=== PATIENT | male | born 1995 | race Caucasian/White ===

== ENCOUNTER 2023-11-06 14:28 | Emergency (ER) | payer BC, SELFPAY ==
[2023-11-06 14:31] VITALS: BP 130/80; PULSE 66; RESP 18; TEMP 36.2; O2SAT 97; BMI 31.0
--- NOTE | 2023-11-06 15:07 | ED_ITS ---
HPI - Wound/Laceration General Chief Complaint: Laceration/Wound Stated Complaint: laceration- L index finger Time Seen by Provider: 11/06/23 14:34 History of Present Illness HPI narrative: This 28-year-old male comes in with a laceration to the distal portion of the pad of his left index finger. He was using a kitchen knife and accidentally cut into his finger. This happened a couple hours prior to arrival. He has a 1.5 cm linear laceration on the pad of his left index finger that does continue to bleed. His tetanus status is up-to-date. Related Data Home Medications ?Medication ?Instructions ?Recorded ?Confirmed No Known Home Medications 11/06/23 11/06/23 Allergies Allergy/AdvReac Type Severity Reaction Status Date / Time No Known Drug Allergies Allergy Verified 11/06/23 14:31 Review of Systems Status of ROS: Reports: 10 or more systems reviewed and unremarkable except as noted in History and below Narrative: Constitutional: No fevers, no weight gain or loss. Eyes: No discharge. No vision changes. HENT: No congestion, no sore throat, no ear pain. Cardiovascular: No chest pain, no palpitations. Respiratory: No shortness of breath, no wheezes, no cough. Gastrointestinal: No abdominal pain, no vomiting, no diarrhea. Genitourinary: No dysuria, no hematuria. Musculoskeletal: Normal range of motion. Skin: No rashes, no pruritis. Neurological: No dizziness, weakness, sensory change, speech change. Endo/Heme/Allergies: No bruising or bleeding. No polydipsia. Pysch: no suicidality, no anxiety, no insomnia. All other systems reviewed and are negative. Exam Narrative: Exam Narrative: Constitutional: Well-developed, well-nourished, no acute distress. HEENT: Normocephalic, atraumatic. Neck: Normal range of motion. Nontender. Supple. Heart: Intact distal pulses. Lungs: No chest discomfort. No wheezes, rhonchi, or rales. Abdomen: Nontender. Back: Normal range of motion. Extremities: Normal range of motion. 1.5 cm linear laceration on the pad of the distal portion of the left index finger. Skin: Intact. No rash. Warm. No erythema or pallor. Neurologic: No altered sensation. No weakness. Alert and oriented. Psychiatric: No suicidality. No anxiety or depression. No insomnia. Nursing notes and vitals signs are reviewed. Const: Vital Signs, click to edit/add: Vital Signs - 24 hr 11/06/23 14:31 Temperature 97.2 F L Pulse Rate [Pulse Oximeter] 66 Respiratory Rate 18 Blood Pressure [Ri ght Upper Arm] 130/80 Pulse Oximetry 97 Oxygen Delivery Me thod Room Air Course Vital Signs Vital signs: Initial Vital Signs Temperature 97.2 F L 11/06/23 14:31 Temperature Source Temporal Artery Scan 11/06/23 14:31 Pulse Rate 66 11/06/23 14:31 Respiratory Rate 18 11/06/23 14:31 Blood Pressure 130/80 11/06/23 14:31 Blood Pressure Mean 96 11/06/23 14:31 Blood Pressure Position Sitting 11/06/23 14:31 Pulse Oximetry 97 11/06/23 14:31 Oxygen Delivery Method Room Air 11/06/23 14:31 Vital Signs Temperature 97.2 F L 11/06/23 14:31 Pulse Rate 66 11/06/23 14:31 Respiratory Rate 18 11/06/23 14:31 Blood Pressure 130/80 11/06/23 14:31 Pulse Oximetry 97 11/06/23 14:31 Oxygen Delivery Method Room Air 11/06/23 14:31 Temperature 97.2 F L 11/06/23 14:31 Pulse Rate 66 11/06/23 14:31 Respiratory Rate 18 11/06/23 14:31 Blood Pressure 130/80 11/06/23 14:31 Pulse Oximetry 97 11/06/23 14:31 Oxygen Delivery Method Room Air 11/06/23 14:31 MDM - Wound/Laceration MDM Narrative Medical decision making narrative: This patient has a laceration on his finger that would benefit from repair. I did describe options including Dermabond and suture repair. The patient elected to have sutures placed. After anesthesia with 1% lidocaine with epinephrine the wound was cleansed explored to its base. I placed 4 sutures in interrupted fashion using 4.0 Ethilon suture. Instructions regarding wound care were given. He will need to follow-up with urgent care clinic in 7-10 days for suture removal. A Band-Aid was applied. Discharge Plan Discharge Clinical Impression: Laceration Patient Disposition: Home, Self-Care Condition: Improved Additional Instructions: Keep wound clean and dry. Follow-up with clinic urgent care in 7-10 days for suture removal. Prescriptions: No Action No Known Home Medications Stand Alone Forms: [email or web address] Info Instructions
[2023-11-06 15:17] VITALS: BP 130/80; PULSE 66; RESP 18; TEMP 36.2
== END 2023-11-06 15:18 | disposition home or self-care (01) ==
LOC: ED 15:15
PROVIDERS: Emergency Provider Emergency Medicine Emergency Medical Services
DX: S61.211A Laceration without foreign body of left index finger without damage to nail, initial encounter (principal); W26.0XXA Contact with knife, initial encounter
CPT/HCPCS: 12001; 99283; 99284